=== PATIENT | male | born 1980 | race Caucasian/White ===

== ENCOUNTER 2019-07-22 05:09 | Inpatient (IN) | payer OTHER ==
[~2019-07-22] VITALS: Ht 162.6 cm; Wt 68.0 kg
--- NOTE | 2019-07-22 05:25 | NUR ---
Pt arrived at the ER by foot with c/o dizziness, shakiness from alcohol withdrawal, n/v, backpain x 2 days. Pt states he is homeless. Patient AOx4. Denies any SOB. Appears weak and lethargic. Still able to answer simple questions.
--- NOTE | 2019-07-22 05:28 | NUR ---
Dr. Cotton on bedside for MSE.
[2019-07-22] MEDS ORDERED: ONDANSETRON 4 MG/2 ML VIAL IV ONE (05:30)
[2019-07-22] MEDS ORDERED: PANTOPRAZOLE SODIUM 40 MG VIAL IV ONE (05:30)
[2019-07-22] MEDS ORDERED: HYDROMORPHONE 1 MG/1 ML DISP.SYRIN IV ONE (05:30)
[2019-07-22] MEDS ORDERED: INSULIN REGULAR, HUMAN 300 UNIT/3 ML VIAL IV ONE (05:30)
[2019-07-22] MEDS ORDERED: IV NORMAL SALINE 1000 ML BAG IV ONE ×2 (05:30)
[2019-07-22] MEDS ORDERED: LORAZEPAM 2 MG/1 ML VIAL IV ONE (05:30)
[2019-07-22] MEDS ORDERED: INSULIN REGULAR, HUMAN 300 UNIT/3 ML VIAL ONE ×2 (05:40→07:42)
[2019-07-22] MEDS ORDERED: ONDANSETRON 4 MG/2 ML VIAL ONE (05:40)
[2019-07-22] MEDS ORDERED: PANTOPRAZOLE SODIUM 40 MG VIAL ONE (05:40)
[2019-07-22] MEDS ORDERED: HYDROMORPHONE 1 MG/1 ML DISP.SYRIN ONE (05:40)
[2019-07-22] MEDS ORDERED: LORAZEPAM 2 MG/1 ML VIAL ONE (05:41)
[2019-07-22 06:11] LABS: BILIRUBIN,DIRECT 0.4 mg/dL (0.0-0.2); BILIRUBIN,TOTAL 0.9 mg/dL (0.2-1.0); CREATININE 1.1 mg/dL (0.6-1.3); POTASSIUM 4.5 mmol/L (3.5-5.1); TOTAL PROTEIN, SERUM 8.3 g/dL (6.4-8.2)
--- NOTE | 2019-07-22 06:31 | NUR ---
Patient back to ER from CT.
--- NOTE | 2019-07-22 06:35 | NUR ---
Repeated BS testing per Dr. Cotton instruction, was 519. Dr. Mora made aware.
[2019-07-22 06:39] LABS: BASOPHILS % (AUTO) 0.8 % (0.0-2.0); EOSINOPHILS # (AUTO) 0.1 K/uL (0.0-0.7); EOSINOPHILS % (AUTO) 2.3 % (0.0-7.0); HEMOGLOBIN 11.9 g/dL (12.5-16.3); LYMPHOCYTES # (AUTO) 0.8 K/uL (20.0-40.0); MEAN CORPUSCULAR HEMOGLOBIN 31.1 uug (23.8-33.4); MEAN CORPUSCULAR HGB CONC 33 g/dL (32.5-36.3); MONOCYTES # (AUTO) 0.2 K/uL (2.0-10.0); MONOCYTES % (AUTO) 4.4 % (0.0-11.0); NEUTROPHILS # (AUTO) 2.8 K/uL (1.8-8.9); NEUTROPHILS % (AUTO) 71.5 % (38.5-71.5); PLATELET COUNT (AUTO) 132 K/uL (152-348); RED BLOOD CELL COUNT(AUTO) 3.83 MIL/uL (4.06-5.63); WHITE BLOOD COUNT (AUTO) 3.9 K/uL (3.6-10.2)
--- NOTE | 2019-07-22 06:50 | NUR ---
Report given to day shift VIK Schrader
[2019-07-22 07:15] LABS: *BILIRUBIN,URIN NEGATIVE (NEGATIVE); *CLARITY,URINE CLEAR (CLEAR); *KETONES,URINE NEGATIVE (NEGATIVE); *UROBILINOGEN,URINE 0.2 E.U./dl (NORMAL); LEUKOCYTE ESTERASE ,URINE NEGATIVE (NEGATIVE); NITRITE, URINE NEGATIVE (NEGATIVE); PH,URINE 6.5 (5.0-8.0); UGLUCOSE 2+ (NEGATIVE)
[2019-07-22 07:33] LABS: *BLOOD, URINE TRACE (NEGATIVE); *COLOR,URINE LIGHT YELLOW (YELLOW)
[2019-07-22] MEDS ORDERED: INSULIN REGULAR, HUMAN 100 UNITS in IV NORMAL SALINE 100 ML IV ONE ×2 (07:45)
[2019-07-22 07:46] LABS: BACTERIA,URINE NONE SEEN /HPF (NONE SEEN); SQUAMOUS EPITHELIAL CELL,UR NONE SEEN /HPF (NONE SEEN); WBC,URINE 0-3 /HPF (0-3)
--- NOTE | 2019-07-22 08:27 | NUR ---
Patient in bed asleep, VSS NAD
[2019-07-22 08:28] LABS: ETHANOL < 3 MG/DL (0-0)
--- NOTE | 2019-07-22 09:41 | NUR ---
Javed Langley, [facility], paged. Awaiting call back.
--- NOTE | 2019-07-22 09:56 | NUR ---
Javed Langley NP on the line with KENIA discussing patient case.
--- NOTE | 2019-07-22 09:59 | NUR ---
Per ERMD stop insulin infusion and patient will be downgraded to TELE.
--- NOTE | 2019-07-22 10:19 | NUR ---
Awaiting call back to give report from TELE nurse
--- NOTE | 2019-07-22 10:33 | NUR ---
Report given to VIK Boothe
--- NOTE | 2019-07-22 10:40 | NUR ---
Patient transported to TELE in stable condition.
--- NOTE | 2019-07-22 10:50 | NUR ---
received patient from er, oriented to room, made comfortable. oob to brp, tolerated well.
[2019-07-22 11:17] VITALS: BP 124/87
[2019-07-22] MEDS ORDERED: NPH,100V SQ (11:32)
[2019-07-22] MEDS ORDERED: MULT-15 PO (11:32)
[2019-07-22] MEDS ORDERED: ONDA4TAB11 PO (11:32)
[2019-07-22] MEDS ORDERED: PANT40TA2 PO (11:32)
[2019-07-22] MEDS ORDERED: CHLO25CA10 PO (11:32)
[2019-07-22] MEDS ORDERED: FOLI1TAB16 PO (11:32)
[2019-07-22] MEDS ORDERED: CLIN300C11 PO (11:32)
--- NOTE | 2019-07-22 12:30 | NUR ---
yves Langley aware of bs 215. no new order, will continue with new order
[2019-07-22] MEDS ORDERED: IV D5 1/2 NS 1000 ML 1,000 ML IV PRN (13:04)
[2019-07-22] MEDS ORDERED: Z GUARD REMEDY PASTE 57 GM TUBE TOP PRN (13:15)
[2019-07-22] MEDS ORDERED: MAGNESIUM HYDROXIDE 30 ML LIQUID UDC PO PRN (13:15)
[2019-07-22] MEDS ORDERED: ACETAMINOPHEN 325 MG TABLET PO PRN (13:15)
[2019-07-22] MEDS ORDERED: DEXTROSE 50% 50 ML DISP.SYRIN IV PRN (13:15)
[2019-07-22] MEDS ORDERED: LORAZEPAM 2 MG/1 ML VIAL IV PRN (13:15)
[2019-07-22] MEDS ORDERED: ONDANSETRON 4 MG/2 ML VIAL IV PRN (13:15)
[2019-07-22] MEDS: INSULIN REGULAR, HUMAN 300 UNIT/3 ML VIAL SQ PRN ×3 (13:44→21:59)
--- NOTE | 2019-07-22 13:47 | NUR ---
insulin given for bs 215 as ordered. wo;; monitor bs . patient ate late lunch and tolerated food, fluids well.
--- NOTE | 2019-07-22 13:50 | NUR ---
discussed order from yves strong. understood but refused michael catheter. jony strong p aware.
[2019-07-22 13:51] LABS: *AMPHETAMINE, URINE POSITIVE (NEGATIVE); *BARBITURATE, URINE NEGATIVE (NEGATIVE); *CANNABINOID, URINE POSITIVE (NEGATIVE); *COCCAINE, URINE NEGATIVE (NEGATIVE); *OPIATE, URINE NEGATIVE (NEGATIVE); *PHENCYCLIDINE SCREEN,URINE NEGATIVE (NEGATIVE)
[2019-07-22] MEDS: HYDROCODONE/APAP 5-325MG TABLET PO PRN ×2 (14:02→21:16)
[2019-07-22] MEDS: CHLORDIAZEPOXIDE HCL 25 MG CAPSULE PO SCH (14:03)
[2019-07-22 15:24] VITALS: BP 113/77
[2019-07-22] MEDS: BLOOD SUGAR DIAGNOSTIC 1 EACH STRIP VI SCH ×2 (17:22→21:22)
[2019-07-22 20:30] VITALS: BP 112/78
[2019-07-22] MEDS: LORAZEPAM 2 MG/1 ML VIAL IV PRN (21:50)
--- NOTE | 2019-07-22 22:05 | NUR ---
spoke with dr Langley, reported glucose level 397, patient is eating, running D5 1/2NS at 75. New order is to change to NS at 75ml/hr and CCHO diet.
[2019-07-22] MEDS: IV NS 1000 ML 1,000 ML IV PRN (22:25)
[2019-07-23 00:05] VITALS: BP 122/64
[2019-07-23] MEDS: LORAZEPAM 2 MG/1 ML VIAL IV PRN ×3 (03:53→22:20)
[2019-07-23 04:00] VITALS: BP 110/71
[2019-07-23] MEDS: PANTOPRAZOLE SODIUM 40 MG TABLET.DR PO SCH (06:12)
[2019-07-23] MEDS: BLOOD SUGAR DIAGNOSTIC 1 EACH STRIP VI SCH ×5 (06:34→21:33)
[2019-07-23 06:38] LABS: BASOPHILS % (AUTO) 0.8 % (0.0-2.0); EOSINOPHILS # (AUTO) 0.2 K/uL (0.0-0.7); EOSINOPHILS % (AUTO) 4.5 % (0.0-7.0); HEMATOCRIT 33.1 % (36.7-47.1); HEMOGLOBIN 11.1 g/dL (12.5-16.3); LYMPHOCYTES # (AUTO) 1.5 K/uL (20.0-40.0); LYMPHOCYTES % (AUTO) 34.1 % (20.5-51.5); MEAN CORPUSCULAR HEMOGLOBIN 30.4 uug (23.8-33.4); MEAN CORPUSCULAR HGB CONC 34 g/dL (32.5-36.3); MEAN CORPUSCULAR VOLUME 90.8 fL (73.0-96.2); MONOCYTES # (AUTO) 0.3 K/uL (2.0-10.0); MONOCYTES % (AUTO) 5.7 % (0.0-11.0); NEUTROPHILS # (AUTO) 2.4 K/uL (1.8-8.9); NEUTROPHILS % (AUTO) 54.9 % (38.5-71.5); PLATELET COUNT (AUTO) 127 K/uL (152-348); RED BLOOD CELL COUNT(AUTO) 3.65 MIL/uL (4.06-5.63); WHITE BLOOD COUNT (AUTO) 4.4 K/uL (3.6-10.2)
[2019-07-23 07:02] LABS: BILIRUBIN,TOTAL 0.6 mg/dL (0.2-1.0); CREATININE 0.7 mg/dL (0.6-1.3); MAGNESIUM 1.5 mg/dL (1.8-2.4); PHOSPHOROUS 3.5 mg/dL (2.5-4.9); POTASSIUM 3.9 mmol/L (3.5-5.1); TOTAL PROTEIN, SERUM 6.3 g/dL (6.4-8.2)
--- NOTE | 2019-07-23 07:30 | NUR ---
Awake, alert, oriented x 4, calm and cooperative. IVF infusing. Tele ST. Complaining of back pain. Discussed blood glucose monitoring, management
[2019-07-23] MEDS: INSULIN REGULAR, HUMAN 300 UNIT/3 ML VIAL SQ PRN (08:43)
[2019-07-23] MEDS: CHLORDIAZEPOXIDE HCL 25 MG CAPSULE PO SCH ×2 (08:44→16:10)
[2019-07-23] MEDS: NICOTINE 14 MG/24HR PATCH TD SCH (08:44)
[2019-07-23] MEDS: HYDROCODONE/APAP 5-325MG TABLET PO PRN ×2 (08:45→21:41)
[2019-07-23] MEDS: MAGNESIUM SULFATE/D5W 100 ML IV SCH ×2 (09:58→11:30)
[2019-07-23] MEDS ORDERED: DEXTROSE 50% 50 ML DISP.SYRIN IV PRN ×2 (11:45→18:45)
[2019-07-23] MEDS ORDERED: INSULIN REGULAR, HUMAN 300 UNIT/3 ML VIAL SQ PRN (11:45)
[2019-07-23] MEDS ORDERED: INSULIN REGULAR, HUMAN 300 UNITS/3 ML VIAL SQ PRN (11:45)
[2019-07-23 11:59] VITALS: BP 94/62
--- NOTE | 2019-07-23 12:00 | NUR ---
Blood glucose 383, Spoke with Javde Langley BUCCARO. Insulin Sliding scale changed to aggressive.
[2019-07-23 15:17] VITALS: BP 94/57
--- NOTE | 2019-07-23 16:30 | NUR ---
Patient had shower. Blood glucose 65, Juice and sandwich given. Repeat BG 114
[2019-07-23] MEDS ORDERED: KETOROLAC TROMETHAMINE 15 MG INJ IVP ONE (18:45)
--- NOTE | 2019-07-23 18:49 | NUR ---
Javed Langley PROTOTYPE CARPENTER informed of low BG, Sliding scale changed to Moderate. Complaining of back pain not relieved with Railroad. Toradol to be given as ordered
--- NOTE | 2019-07-23 19:40 | NUR ---
Received patient awake in bed. No signs or symptoms of distress or SOB. On room air. Left AC IV is patent and intact. Physical assessment done. Pain assessment done. All current needs met and anticipated. Bed is in low position, and two side rails up for safety. Call light and frequently used items within reach. Will continue to monitor and give care.
[2019-07-23 19:47] VITALS: BP 108/66
[2019-07-23] MEDS: IV NS 1000 ML 1,000 ML IV PRN (21:41)
[2019-07-23] MEDS: INSULIN REGULAR, HUMAN 300 UNITS/3 ML VIAL SQ PRN (22:14)
--- NOTE | 2019-07-23 22:41 | NUR ---
HS sugar was 559, STAT lab draw was 608, Dr Langley was notified. Dr Ontiveros is on the floor, ordered to give 10 additional units and request a long-acting insulin from the attending in the morning. patient is asymptomatic.
--- NOTE | 2019-07-23 23:06 | NUR ---
Patient was found smoking in the bathroom. Cigarettes and chha were confiscated and put in a locker.
[2019-07-24] MEDS: HYDROCODONE/APAP 5-325MG TABLET PO PRN ×2 (02:19→09:01)
[2019-07-24] MEDS: BLOOD SUGAR DIAGNOSTIC 1 EACH STRIP VI SCH ×5 (02:28→20:32)
[2019-07-24] MEDS ORDERED: INSULIN REGULAR, HUMAN 300 UNIT/3 ML VIAL SQ ONE (02:30)
--- NOTE | 2019-07-24 02:30 | NUR ---
Patient is requesting HIV testing. Will endorse to morning shift.
--- NOTE | 2019-07-24 02:45 | NUR ---
Patient was given a one-time dose of Humulin R 10 units to cover blood glucose of 347. Ate 2 sugar free puddings. Asymptomatic at this time. Comfort and safety in place
[2019-07-24 04:00] VITALS: BP 99/64
[2019-07-24] MEDS: PANTOPRAZOLE SODIUM 40 MG TABLET.DR PO SCH (06:11)
[2019-07-24 06:27] LABS: BASOPHILS % (AUTO) 0.6 % (0.0-2.0); EOSINOPHILS # (AUTO) 0.2 K/uL (0.0-0.7); EOSINOPHILS % (AUTO) 4.1 % (0.0-7.0); HEMATOCRIT 33.8 % (36.7-47.1); HEMOGLOBIN 11.3 g/dL (12.5-16.3); LYMPHOCYTES # (AUTO) 1.5 K/uL (20.0-40.0); LYMPHOCYTES % (AUTO) 35.7 % (20.5-51.5); MEAN CORPUSCULAR HEMOGLOBIN 30.2 uug (23.8-33.4); MEAN CORPUSCULAR HGB CONC 34 g/dL (32.5-36.3); MEAN CORPUSCULAR VOLUME 90.3 fL (73.0-96.2); MONOCYTES # (AUTO) 0.3 K/uL (2.0-10.0); MONOCYTES % (AUTO) 6.2 % (0.0-11.0); NEUTROPHILS # (AUTO) 2.2 K/uL (1.8-8.9); NEUTROPHILS % (AUTO) 53.4 % (38.5-71.5); PLATELET COUNT (AUTO) 121 K/uL (152-348); RED BLOOD CELL COUNT(AUTO) 3.74 MIL/uL (4.06-5.63); WHITE BLOOD COUNT (AUTO) 4.1 K/uL (3.6-10.2)
[2019-07-24 06:36] LABS: CREATININE 0.8 mg/dL (0.6-1.3); MAGNESIUM 1.8 mg/dL (1.8-2.4); POTASSIUM 3.7 mmol/L (3.5-5.1)
--- NOTE | 2019-07-24 07:25 | NUR ---
PATIENT IS AWAKE ALERT AND ORIENTED FOCUSED ON FOOD THIS AM WANTS MORE FOOD TO EAT EVEN THOUIGH HE WAS ALREADY GIVEN A SAND WISH THIS AM PATIENT IS AT RISK FOR HYPERGLYCEMIA PATIENT ENCOURAGED TO WAIT FOR BREAKFAST WHICH WILL BE HERE SHORTLY AND HE AGREED.HE IS CURRENTLY ON IVF ORDERED WITH NO S/S OF INFILTERATION ON SITE TELE MONITORING IS IN PROGRESS ORDERED CALL LIGHTS AND PERSONAL BELONGINGS ARE WITHIN EASY REACH AT THIS TIME AND WILL CONTINUE TO OBSERVE AND PROVIDE SAFE AND THERAPEUTIC ENVIRONMENT AT ALL TIMES.
[2019-07-24] MEDS: NICOTINE 14 MG/24HR PATCH TD SCH (09:00)
[2019-07-24] MEDS: CHLORDIAZEPOXIDE HCL 25 MG CAPSULE PO SCH ×2 (09:01→17:00)
[2019-07-24] MEDS: LORAZEPAM 2 MG/1 ML VIAL IV PRN ×2 (11:23→21:52)
[2019-07-24 11:27] VITALS: BP 90/50
[2019-07-24] MEDS: IV NS 1000 ML 1,000 ML IV PRN ×2 (11:31→23:12)
--- NOTE | 2019-07-24 11:44 | NUR ---
DR CERRATO NOTIFIED RE BLOOD SUGAR IS AT 477 WITH NEW ORDERS TO ADD LANTUS TO HIS DRUG REGIMEN AND NOTED.
[2019-07-24] MEDS: INSULIN REGULAR, HUMAN 300 UNIT/3 ML VIAL SQ PRN ×2 (11:56→16:59)
[2019-07-24] MEDS: INSULIN GLARGINE,HUM 300 UNITS/3 ML CARTRIDGE SQ SCH ×2 (12:16→20:43)
[2019-07-24 16:13] VITALS: BP 95/56
--- NOTE | 2019-07-24 16:25 | NUR ---
PATIENT RESIGNED AND ENDORSED TO OTHER RN PATIENT IS IN SATISFACTORY CONDITION AT THIS TIME.
--- NOTE | 2019-07-24 16:30 | NUR ---
received sleeping in bed, no distress noted, no tremors noted, call light within reach
--- NOTE | 2019-07-24 18:43 | NUR ---
ambulated in the hallway- tolerated well, noncompliant with food- took some cookies from visitors cart, states his blood sugar is always high, no distress noted at this time, no seizure activity noted, call light within reach
[2019-07-24 19:52] VITALS: BP 93/58
[2019-07-24] MEDS: MORPHINE SULFATE 2 MG/1 ML DISP.SYRIN IV PRN (20:35)
[2019-07-24] MEDS: INSULIN REGULAR, HUMAN 300 UNITS/3 ML VIAL SQ PRN (20:44)
--- NOTE | 2019-07-25 00:50 | NUR ---
PATIENT RPORTED TO ME THAT WAS NOT FEELING "TO WELL" PER PATIENT HAS TREMORS, DIAPHORESIS, AND BONE PAIN. PATIENT DISCLOSED TO ME THAT HE USES METH EVERYDAY AND ALCOHOL, HE SAID IT MIGHT BE WITHDRAWALS. HE I RESTLESS, PACING BACK AND FORTH, WALKING AROUND THE UNIT. BS CHECKED 166 . VS STABLE. SPOKE TO ERICK, AND ORDERED ATIVAN 2MG IV X1 NOW, ALSO MORPHINE 4MG IV X1 NOW.
[2019-07-25] MEDS ORDERED: MORPHINE SULFATE 4 MG/1 ML DISP.SYRIN IV ONE (01:00)
[2019-07-25] MEDS ORDERED: LORAZEPAM 2 MG/1 ML VIAL IV ONE (01:00)
[2019-07-25 01:09] VITALS: BP 107/80
[2019-07-25 04:00] VITALS: BP 101/60
[2019-07-25] MEDS: LORAZEPAM 2 MG/1 ML VIAL IV PRN ×2 (04:31→21:59)
[2019-07-25] MEDS: BLOOD SUGAR DIAGNOSTIC 1 EACH STRIP VI SCH ×4 (06:43→21:54)
[2019-07-25] MEDS: PANTOPRAZOLE SODIUM 40 MG TABLET.DR PO SCH (06:43)
[2019-07-25] MEDS: CHLORDIAZEPOXIDE HCL 25 MG CAPSULE PO SCH ×2 (08:29→16:54)
[2019-07-25] MEDS: NICOTINE 14 MG/24HR PATCH TD SCH (08:29)
[2019-07-25] MEDS: INSULIN GLARGINE,HUM 300 UNITS/3 ML CARTRIDGE SQ SCH ×2 (08:34→21:51)
[2019-07-25] MEDS: INSULIN REGULAR, HUMAN 300 UNIT/3 ML VIAL SQ PRN ×2 (08:38→12:19)
[2019-07-25 11:34] VITALS: BP 101/63
--- NOTE | 2019-07-25 12:00 | NUR ---
PT IS RESTING IN BED. NO ACUTE DISTRESS OR SOB NOTED. PT ALERT AND ORIENTED. PT REFUSED PHYSICAL THERAPY. PT AMBULATORY IN ROOM. PT REMOVED NICOTINE PATCH AT 0945. PHYSICAL THERAPY FOUND WHAT SEEMED TO BE REMNANTS OF A TYPE OF ROLLED UP CIGARETTE WHICH IN TURN WAS GIVEN TO WOOD SAWYER. PT IS DIET AND MEDICATION COMPLIANT. WILL CONTINUE TO MONITOR.
[2019-07-25 15:22] VITALS: BP 97/62
--- NOTE | 2019-07-25 18:05 | NUR ---
PT RESTING COMFORTABLY IN BED. DR CERRATO PLANS TO DISCHARGE PATIENT TOMORROW. NO SIGNS OF SOB OR ACUTE DISTRESS. PT COOPERATIVE. ALERT AND ORIENTED X3. CALL LIGHT WITHIN REACH. PT AMBULATES IN ROOM. WILL GIVE REPORT ACCORDINGLY.
[2019-07-25 18:17] VITALS: BP 108/71
[2019-07-25] MEDS: MORPHINE SULFATE 2 MG/1 ML DISP.SYRIN IV PRN ×2 (18:32→23:06)
[2019-07-25 20:37] VITALS: BP 103/69
[2019-07-25] MEDS: INSULIN REGULAR, HUMAN 300 UNITS/3 ML VIAL SQ PRN (21:53)
--- NOTE | 2019-07-25 23:48 | NUR ---
Patient is alert and oriented x4. Ambulatory with steady gait. Observed walking around the unit with no apparent discomfort. Patient observed eating and chewing something hidden in his bag. Patient will not allow nurse to inspect. Report given by morning nurse of patient hiding objects Educated patient. Possible discharge tomorrow. Will continue to monitor behavior and medication effectiveness..
[2019-07-26] MEDS ORDERED: LORAZEPAM 1 MG TABLET PO ONE (02:15)
[2019-07-26] MEDS ORDERED: MORPHINE SULFATE 2 MG/1 ML DISP.SYRIN IV ONE (02:15)
[2019-07-26 04:28] VITALS: BP 114/71
[2019-07-26] MEDS: LORAZEPAM 2 MG/1 ML VIAL IV PRN (05:21)
[2019-07-26] MEDS: MORPHINE SULFATE 2 MG/1 ML DISP.SYRIN IV PRN (05:21)
[2019-07-26] MEDS: IV NS 1000 ML 1,000 ML IV PRN (05:38)
[2019-07-26] MEDS: PANTOPRAZOLE SODIUM 40 MG TABLET.DR PO SCH (06:28)
[2019-07-26 06:36] LABS: BASOPHILS % (AUTO) 0.5 % (0.0-2.0); EOSINOPHILS # (AUTO) 0.2 K/uL (0.0-0.7); EOSINOPHILS % (AUTO) 4.5 % (0.0-7.0); HEMATOCRIT 32.5 % (36.7-47.1); HEMOGLOBIN 10.8 g/dL (12.5-16.3); LYMPHOCYTES # (AUTO) 1.2 K/uL (20.0-40.0); LYMPHOCYTES % (AUTO) 33.6 % (20.5-51.5); MEAN CORPUSCULAR HEMOGLOBIN 30.4 uug (23.8-33.4); MEAN CORPUSCULAR HGB CONC 33 g/dL (32.5-36.3); MONOCYTES # (AUTO) 0.3 K/uL (2.0-10.0); MONOCYTES % (AUTO) 7.1 % (0.0-11.0); NEUTROPHILS % (AUTO) 54.3 % (38.5-71.5); PLATELET COUNT (AUTO) 109 K/uL (152-348); RED BLOOD CELL COUNT(AUTO) 3.57 MIL/uL (4.06-5.63); WHITE BLOOD COUNT (AUTO) 3.6 K/uL (3.6-10.2)
[2019-07-26 06:44] LABS: BILIRUBIN,TOTAL 0.5 mg/dL (0.2-1.0); CREATININE 0.9 mg/dL (0.6-1.3); MAGNESIUM 1.6 mg/dL (1.8-2.4); TOTAL PROTEIN, SERUM 6.4 g/dL (6.4-8.2)
--- NOTE | 2019-07-26 07:15 | NUR ---
Received patient sitting in Bed, awake and verbally responsive. patient pulled out his IV. No signs of distress noted. No complain of Pain or discomfort. Patient with BS of 300 in AM, will give 9 units per sliding scale. All continue to monitor.
[2019-07-26] MEDS: BLOOD SUGAR DIAGNOSTIC 1 EACH STRIP VI SCH ×2 (07:24→11:25)
[2019-07-26] MEDS: INSULIN REGULAR, HUMAN 300 UNIT/3 ML VIAL SQ PRN (08:00)
[2019-07-26] MEDS: CHLORDIAZEPOXIDE HCL 25 MG CAPSULE PO SCH (08:18)
[2019-07-26] MEDS: NICOTINE 14 MG/24HR PATCH TD SCH ×2 (08:18→08:19)
[2019-07-26] MEDS: INSULIN GLARGINE,HUM 300 UNITS/3 ML CARTRIDGE SQ SCH (08:30)
[2019-07-26] MEDS ORDERED: MAGNESIUM OXIDE 400 MG TABLET PO ONE (09:30)
[2019-07-26 11:32] VITALS: BP 104/69
--- NOTE | 2019-07-26 15:00 | NUR ---
Patient with Discharge order today, Patient is aware.
[2019-07-26] MEDS ORDERED: HYDR-3326 PO (15:05)
[2019-07-26] MEDS ORDERED: Insulin Glargine,Hum SQ (15:05)
--- NOTE | 2019-07-26 16:30 | NUR ---
Patient with Discharge Order today, Patient is awake and verbally responsive. No signs of distress noted. No complain of pain or discomfort. Last 1130 Blood sugar was 98, no insulin given. No signs of Hyper/Hypoglycemia. Discharge Instructions explained and verbalized Understanding, sales service manager explained/refer some jail , clinics and provided a Homeless packet. All belongings signed and sent with patient, Removed IV site and wrist band, tap card was given prior discharge. Snacks provided. patient left the Hospital in stable condition.
[2019-07-26] MEDS ORDERED: INSULIN GLARGINE,HUM 300 UNITS/3 ML CARTRIDGE SQ SCH (21:00)
== END 2019-07-26 16:30 | disposition home or self-care (01) | DRG 638 ==
LOC: ER 05:09 → TELE3 10:22 → MEDSURG3 07-24 11:50
PROVIDERS: ADMIT Hospitalist; ATTEND Hospitalist
DX: E10.65 Type 1 diabetes mellitus with hyperglycemia (principal); F10.239 Alcohol dependence with withdrawal, unspecified; E44.0 Moderate protein-calorie malnutrition; K86.1 Other chronic pancreatitis; Y90.0 Blood alcohol level of less than 20 mg/100 ml; K70.9 Alcoholic liver disease, unspecified; Z91.19 Patient's noncompliance with other medical treatment and regimen; Z59.0 Homelessness; Z90.49 Acquired absence of other specified parts of digestive tract; F17.210 Nicotine dependence, cigarettes, uncomplicated; E83.42 Hypomagnesemia; Z79.4 Long term (current) use of insulin; Z91.14 Patient's other noncompliance with medication regimen; D69.6 Thrombocytopenia, unspecified; D63.8 Anemia in other chronic diseases classified elsewhere; N20.0 Calculus of kidney; F12.90 Cannabis use, unspecified, uncomplicated; K56.41 Fecal impaction; K70.31 Alcoholic cirrhosis of liver with ascites; K86.81 Exocrine pancreatic insufficiency
CPT/HCPCS: 36415; 70030-TC; 71045; 80307; 83690; 83735; 84100; 85025; 85730; 87086; 93005; A4663; C9113; G0378; G0480; J1170; J1815; J1885; J2060; J2270; J2405; J3475; J3490; J7030

== ENCOUNTER 2019-08-07 00:29 | Emergency (ER) | payer MEDICAID, OTHER ==
[~2019-08-07] VITALS: Ht 162.6 cm; Wt 56.7 kg
[~2019-08-07 00:29] MED LIST: FOLI1TAB16 PO; HYDR-3326 PO; Insulin Glargine,Hum SQ; MULT-15 PO; ONDA4TAB11 PO; PANT40TA2 PO
--- NOTE | 2019-08-07 00:56 | NUR ---
Patient requesting med refill for humalog. Patient reported he has not check his blood sugar, does not have a machine to check blood sugar according to patient and last time he took lantus was yesterday.
[2019-08-07] MEDS ORDERED: INSULIN REGULAR, HUMAN 300 UNIT/3 ML VIAL ONE (00:59)
[2019-08-07] MEDS ORDERED: INSULIN REGULAR, HUMAN 300 UNIT/3 ML VIAL SQ ONE (01:00)
--- NOTE | 2019-08-07 01:29 | NUR ---
Patient given written and verbal discharge instructions. Patient verbalizes understanding of instructions. Patient is ambulatory with steady gait. Refuses offer of fdc placement. Patient given list of available shelters in surrounding area. Pt ambulated out of the ER with steady gait. All belongings with pt.
[2019-08-07 01:30] VITALS: BP 129/83
== END 2019-08-07 01:31 | disposition home or self-care (01) ==
LOC: ER 00:33
DX: E11.9 Type 2 diabetes mellitus without complications (principal); F17.210 Nicotine dependence, cigarettes, uncomplicated; F12.10 Cannabis abuse, uncomplicated; Z59.0 Homelessness; Z79.4 Long term (current) use of insulin; Z79.899 Other long term (current) drug therapy
CPT/HCPCS: 96372; 99283; J1815; A4663